=== PATIENT | female | born 1960 | race Caucasian/White ===

== ENCOUNTER 2020-06-21 11:40 | Emergency (ER) | payer OTHER, SELFPAY ==
[2020-06-21 12:28] VITALS: BP 165/70; PULSE 70; RESP 18; TEMP 36.7; O2SAT 99; BMI 28.8
--- NOTE | 2020-06-21 13:10 | ED_ITS ---
HPI - Dental/Oral General Chief complaint: Dental/Oral Stated complaint: swollen face Time Seen by Provider: 06/21/20 12:30 Source: patient Mode of arrival: ambulatory Limitations: no limitations History of Present Illness HPI Narrative: 60yoF presenting to the ED with complaints of right upper dental pain with swelling to the right side of her face and redness that started last night. Reports that she does not have a dentist to follow up with. Denies any other symptoms complaints or concerns at this time. Related Data Previous Rx's Medication Instructions Recorded acetaminophen-codeine 1 tab PO Q8H PRN #10 tab 06/21/20 clindamycin HCl 600 mg PO TID 14 Days #84 cap 06/21/20 ibuprofen 800 mg PO Q8H PRN #14 tab 06/21/20 Allergies Allergy/AdvReac Type Severity Reaction Status Date / Time cephalexin [From KEFLEX] Allergy Unknown IRREGULAR Unverified 02/14/20 16:59 HEART RATE doxycycline [DOXYCYCLINE] Allergy Unknown RASH Unverified 02/14/20 16:59 codeine [CODEINE] AdvReac Unknown GI UPSET Unverified 02/14/20 16:59 Review of Systems Review of Systems: Constitutional : No Fever, No Chills, No changes in PO intake, No difficulty speaking, no recent dental procedure, no heat or cold intolerance while eating, no recent face trauma, ENT/Mouth : + Dental pain/facial swelling, No swallowing difficulty, no change in voice, No jaw pain, no drooling, no trismus, no bleeding, no throat swelling, no lacerations, no tongue swelling, gum swelling, Eyes: No Eye Pain, + right lower periorbital Swelling Cardiovascular : No Chest Pain, No SOB Respiratory : No Cough, No Sputum, No Wheezing, No Smoke Exposure, No Dyspnea Gastrointestinal : No Nausea, No Vomiting, No Diarrhea Genitourinary : No Dysuria Musculoskeletal : No Myalgias Skin : No rash, + facial swelling/redness, Neuro : No Weakness, No Numbness, No Headache Yes all other systems are reviewed and are negative [facility] Past Medical History Attestation statement: The following information was validated with the patient. Medical History COPD (chronic obstructive pulmonary disease) Ovary removal, prophylactic Social History Social History Advance Directives: No Advance Directives Information Provided: No Physical Exam Vital Signs: Vital Signs: Last Vital Signs Temp 98.1 F 06/21/20 12:28 Pulse 70 06/21/20 12:28 Resp 18 06/21/20 12:28 BP 165/70 H 06/21/20 12:28 Pulse Ox 99 06/21/20 12:28 Body Mass Index 28.8 vital signs have been reviewed as normal and appeared to be correct. Blood pressure normal. Heart rate normal. Respiration rate normal. Temperature normal. Oxygen saturation normal. Appearance: Alert. Oriented X3. No acute distress. Head: Normal external exam. Normocephalic. Atraumatic. Eyes: PERRLA. EOMI. Conjunctiva and sclera normal. Eyelids normal. ENT: EAC normal. TM's Normal. Patient with dental caries the cancine ttp at the right upper gingiva otherwise no obvious dental abscess or fluctuant aspect. Pharynx normal. Uvula midline. Moist mucous membranes. No trismus noted. No drooling noted. No muffled voice noted. Neck: Normal inspection. Neck supple. FROM. No adenopathy. Thyroid Normal. No meningeal signs. No neck mass noted. CVS: Normal heart rate and rhythm. Heart sound normal. No murmurs noted. Pulses normal throughout. Respiratory: No respiratory distress. Painless inspiration. Breath sounds normal. No wheezes/rales/rhonchi noted. Chest nontender. No accessory muscle usage noted or decreased air movement noted. Back: Full range of motion noted. Skin: Skin warm and dry. Normal skin color. Normal skin turgor. No rashes/le sions/lacerations noted. Extremities: Extremities exhibit normal range of motion. Extremities nontender. Neuro: Oriented X 3. No motor deficit. No sensory deficit. Reflexes normal. Course Course Course Narrative: 60-year-old female presenting to the ED with complaints of right upper dental pain. Patient has mild erythema to right side of face and soft tissue swelling to right lower periorbital aspect. No signs of dental abscess or indication for labs or imaging at this time. Will DC home with antibiotics and symptomatic treatment along with instructions return if any new or worsening symptoms. Patient understands agrees the plan. [facility] - Dental/Oral Medical Records Attestation: I reviewed the patient's medical records. Discharge Plan Discharge Clinical Impression: Toothache, Dental infection, Cellulitis of face Patient Disposition: Home, Self-Care Instructions: Cellulitis (ED), Toothache (ED) Additional Instructions: Follow-up with the dentist we gave you a couple referrals. Return if you have worsening swelling of the face/redness. Prescriptions: New clindamycin HCl 300 mg capsule 600 mg PO TID 14 Days Qty: 84 RF: 0 ibuprofen 800 mg tablet 800 mg PO Q8H PRN (Reason: pain) Qty: 14 RF: 0 acetaminophen-codeine 300-30 mg tablet 1 tab PO Q8H PRN (Reason: pain) Qty: 10 RF: 0 Referrals: Stephanie Peguero MD [Primary Care Provider] - 2 days Print Language: Croatian
== END 2020-06-21 13:41 | disposition home or self-care (01) ==
PROVIDERS: Emergency Provider Internal Medicine; PCP Family Medicine
DX: K04.7 Periapical abscess without sinus (principal); L03.211 Cellulitis of face; Z79.899 Other long term (current) drug therapy
CPT/HCPCS: 99283

== ENCOUNTER 2022-12-19 08:54 | Emergency (ER) | payer OTHER, SELFPAY ==
[2022-12-19 09:08] VITALS: BP 139/88; PULSE 66; RESP 18; TEMP 36.6; O2SAT 96; BMI 28.2
--- NOTE | 2022-12-19 09:20 | PC.NURSE ---
Patient presenting with what she thinks is a sinus infection. Patient states that she gets these often and that approximately 1 month ago she was [facility] similar symptoms but at that time she ended up not being able to see out of her left eye. Patient trying to avoid having that happen again.
--- OUTSIDE RECORDS SUMMARY | 2022-12-19 09:31 | XMS_ITS | Continuity of Care Document ---
Author Name Unknown Organization [facility] Address [address] [place] [address]- Care Team Providers Care Director University Name Role Phone Marielena OLIVEROS, Stephanie Coles Primary Care Physician Encounter [facility] AC[facility] R [id number] Date(s): 04/28/22 - 05/28/22 [facility] [address], [place] [address] Attending Physician: Admtr, [id number] Admitting Physician: Admtr, Petros Referring Physician: Admtr, [id number] Allergies, Adverse Reactions, Alerts Substance Reaction Severity Status doxycycline Unknown Active Keflex Active Immunizations Given and Recorded Vaccine Date Status Refusal Reason SARS-CoV-2 (COVID-19) mRNA-1273 vaccine 09/30/20 R ecorded influenza virus vaccine, inactivated 04/03/15 [place] rded influenza virus vaccine, inactivated 06/13/12 [place] rded tetanus/diphtheria/pertussis, acel(Tdap) 05/26/10 Recorded Medications amLODIPine 5 mg oral tablet 1 tablet, By Mouth, Daily in AM, # 90 tablet, 1 Refills, Maintenance, 05/25/22 9:14:00 EST, [id number], 168, cm, 03/17/22 9:38:00 EDT, Height, 78, kg, 08/19/20 16:00:00 EDT, Dry Weight Start Date: 05/25/22 Status: Ordered Asmanex HFA 100 mcg/inh inhalation aerosol 2 puffs, Inhalation, 2 times a day, rinse mouth and throat after use, # 13 Gm, 5 Refills, Maintenance, 05/13/21 8:26:00 EST, Aerosol, [id number], Partial fill upon patient request if the prescription is for a schedule II opioid drug., 168, cm,... Start Date: 05/13/21 Status: Ordered cetirizine 10 mg oral tablet 1 tablet = 10 mg, By Mouth, Daily, # 30 tablet, 0 Refills, Maintenance, 05/31/14 9:17:52, Tablet Start Date: 05/31/14 Status: Ordered fluticasone 50 mcg/inh nasal spray See Instructions, SPRAY 2 SPRAYS IN EACH NOSTRIL EVERY DAY, # 16 Gm, 5 Refills, 05/25/22 9:21:00 EST, [facility]/pharmacy #[id number], 30, SPRAY 2 SPRAYS IN EACH NOSTRIL EVERY DAY, 168, cm, 03/17/22 9:38:00 EDT, Height, 78, kg, 08/19/20 16:00:00 EDT, Dry Weight Start Date: 05/25/22 Status: Ordered NuLYTELY with Flavor Packs oral powder for reconstitution 240 mL, By Mouth, Every 10 minutes, May substitute any PEG 3350 solution available SPLIT PREP METHOD, # 1 each, 0 Refills, Maintenance, 08/02/22 17:00:00 EST, REC Powder, [facility]/pharmacy #[id number], test date 08/03/22, 240 mL By Mouth Every 10 minutes,Instr:Ma... Start Date: 08/02/22 Status: Ordered ProAir HFA 90 mcg/inh inhalation aerosol 2 puffs, Inhalation, Every 6 hours, PRN Wheezing/Shortness of Breath, # 1 each, 0 Refills, Maintenance, 12/11/20 13:44:00 EDT, [facility]/pharmacy #[id number], Partial fill upon patient request if the prescription is for a schedule II opioid drug., 2 puffs Inhalat... Start Date: 12/11/20 Status: Ordered Tylenol Extra Strength 500 mg oral tablet 2 tablet = 1,000 mg, By Mouth, Every 4 hours, PRN Pain, # 120 tablet, 0 Refills, Maintenance, 05/31/14 9:19:13, Tablet Start Date: 05/31/14 Status: Ordered Problem List Condition Confirmation Course Effective Dates Status H ealth Status Informant Chronic obstructive lung disease Confirmed Active Environmental allergy Confirmed Active Hypertension Confirmed Active Lung mass 1 Confirmed Active Multiple nodules of lung Confirmed Active 1multiple lung nodules Social History Social History Type Response Tobacco Other: 20 pack year history. about 3/4 ppd or 15 pk yrs. Sex Female Patient Care team information Care Team Personnel Name: Stephanie Peguero MD Position: [facility] Primary Care Physician Member Role: PCP Address: Address: [address] [place] [address] [place] [address]- Care Team Related Persons Name: TRISTINLOVE ALICEA Address: home [address] [place] [id number]
--- OUTSIDE RECORDS SUMMARY | 2022-12-19 09:31 | XMS_ITS | Continuity of Care Document ---
Author Name Unknown Organization [facility] Address [address] [place] [address]- Care Team Providers Care Jewelry Enameler Name Role Phone Stephanie Peguero MD Primary Care Physician Encounter [facility] Date(s): 04/28/22 - 05/05/22 [facility] [address] [place], [place] [address] Encounter Diagnosis Acute sinusitis(Discharge Diagnosis) - 04/28/22 Attending Physician: Not on Staff, Attending MD Referring Physician: Stephanie Peguero MD Allergies, Adverse Reactions, Alerts Substance Reaction Severity Status doxycycline Unknown Active Keflex Active Immunizations Given and Recorded Vaccine Date Status Refusal Reason SARS-CoV-2 (COVID-19) mRNA-9800 vaccine 09/30/20 R ecorded influenza virus vaccine, inactivated 04/03/15 Hernan rded influenza virus vaccine, inactivated 06/13/12 Hernan rded tetanus/diphtheria/pertussis, acel(Tdap) 05/26/10 Recorded Medications amLODIPine 5 mg oral tablet 1 tablet, By Mouth, Daily in AM, # 90 tablet, 0 Refills, Maintenance, 02/22/22 7:11:00 EDT, [id number], 168, cm, 12/11/20 13:22:00 EDT, Height, 78, kg, 08/19/20 16:00:00 EDT, Dry Weight Start Date: 02/22/22 Status: Ordered Asmanex HFA 100 mcg/inh inhalation aerosol 2 puffs, Inhalation, 2 times a day, rinse mouth and throat after use, # 13 Gm, 5 Refills, Maintenance, 05/13/21 8:26:00 EST, Aerosol, [id number], Partial fill upon patient request if the prescription is for a schedule II opioid drug., 168, cm,... Start Date: 05/13/21 Status: Ordered Augmentin 875 mg-125 mg oral tablet 1 tablet, By Mouth, Every 12 hours, for 10 days, # 20 tablet, 0 Refills, Acute 05/08/22 15:22:00 EST, 04/28/22 15:22:00 EST, Tablet, [facility]/pharmacy #[id number], Partial fill upon patient request if the prescription is for a schedule II opioid drug., 168, cm,... Start Date: 04/28/22 Stop Date: 05/08/22 Status: Ordered cetirizine 10 mg oral tablet 1 tablet = 10 mg, By Mouth, Daily, # 30 tablet, 0 Refills, Maintenance, 05/31/14 9:17:52, Tablet Start Date: 05/31/14 Status: Ordered fluticasone 50 mcg/inh nasal spray See Instructions, SPRAY 2 SPRAYS IN EACH NOSTRIL EVERY DAY, # 16 Gm, 5 Refills, 06/01/21 10:08:00 EST, [facility]/pharmacy #[id number], 30, SPRAY 2 SPRAYS IN EACH NOSTRIL EVERY DAY, 168, cm, 12/11/20 13:22:00 EDT, Height, 78, kg, 08/19/20 16:00:00 EDT, Dry Weight Start Date: 06/01/21 Status: Ordered NuLYTELY with Flavor Packs oral powder for reconstitution 240 mL, By Mouth, Every 10 minutes, May substitute any PEG 3350 solution available SPLIT PREP METHOD, # 1 each, 0 Refills, Maintenance, 08/02/22 17:00:00 EST, REC Powder, [facility]/pharmacy #[id number], test date 08/03/22, 240 mL By Mouth Every 10 minutes,Instr:Ma... Start Date: 08/02/22 Status: Ordered ProAir HFA 90 mcg/inh inhalation aerosol 2 puffs, Inhalation, Every 6 hours, PRN Wheezing/Shortness of Breath, # 1 each, 0 Refills, Maintenance, 12/11/20 13:44:00 EDT, [facility]/pharmacy #[id number], Partial fill upon patient request if [...] of lung Confirmed Active 1multiple lung nodules Diagnosis Diagnosis Type Effective Dates Health Status Cl inical Service Informant Acute sinusitis Discharge Diagnosis 04/28/22 Social History Social History Type Response Tobacco Other: 20 pack year history. about 3/4 ppd or 15 pk yrs. Sex Female Patient Care team information Care Team Personnel Name: Marielena OLIVEROS, Stephanie Coles Position: S Primary Care Physician Member Role: PCP Address: Address: [address] [place] [address] [place] [address]- Care Team Related Persons Name: LOVE CROW Address: home [address] [place] [id number]
--- OUTSIDE RECORDS SUMMARY | 2022-12-19 09:31 | XMS_ITS | Continuity of Care Document ---
Author Name Unknown Organization [facility] Address [address] [place] [address]- Care Team Providers Care Special Effects Designer Name Role Phone Marielena OLIVEROS, Stephanie Coles Primary Care Physician Encounter [facility] Date(s): 03/25/22 - 04/24/22 [facility] [address] [place] [address]- [place] Allergies, Adverse Reactions, Alerts Substance Reaction Severity Status doxycycline Unknown Active Keflex Active Immunizations Given and Recorded Vaccine Date Status Refusal Reason SARS-CoV-2 (COVID-19) mRNA-7323 vaccine 09/30/20 R ecorded influenza virus vaccine, inactivated 04/03/15 Hernan rded influenza virus vaccine, inactivated 06/13/12 [place] rded tetanus/diphtheria/pertussis, acel(Tdap) 05/26/10 Recorded Medications amLODIPine 5 mg oral tablet 1 tablet, By Mouth, Daily in AM, # 90 tablet, 0 Refills, Maintenance, 02/22/22 7:11:00 EDT, [id number], 168, cm, 12/11/20 13:22:00 EDT, Height, 78, kg, 08/19/20 16:00:00 EDT, Dry Weight Start Date: 02/22/22 Status: Ordered Asmanex HFA 100 mcg/inh inhalation aerosol 2 puffs, Inhalation, 2 times a day, rinse mouth and throat after use, # 13 Gm, 5 Refills, Maintenance, 05/13/21 8:26:00 EST, Aerosol, [id number], Partial fill upon patient request if the [...] 16 Gm, 5 Refills, 06/01/21 10:08:00 EST, [facility]/pharmacy #[id number], 30, SPRAY 2 SPRAYS IN [...] Refills, Maintenance, 08/02/22 17:00:00 EST, REC Powder, [facility]/pharmacy #[id number], test date 08/03/22, 240 mL By Mouth Every 10 minutes,Instr:Ma... Start Date: 08/02/22 Status: Ordered ProAir HFA 90 mcg/inh inhalation aerosol 2 puffs, Inhalation, Every 6 hours, PRN Wheezing/Shortness of Breath, # 1 each, 0 Refills, Maintenance, 12/11/20 13:44:00 EDT, [id number], Partial fill upon patient request [...] Team Personnel Name: Stephanie Peguero MD Position: S Primary Care Physician Member Role: PCP Address: Address: [address] [place] [address] Primary Care [place], [place] [address] Care Team Related Persons Name: LOVE CROW Address: home [address] [place] [address]
--- OUTSIDE RECORDS SUMMARY | 2022-12-19 09:31 | XMS_ITS | Continuity of Care Document ---
Author Name Unknown Organization [facility] ter Address [address] [place] [id number]- Care Team Providers Care Nursing Home Admissions Director Name Role Phone Stephanie Peguero MD Primary Care Physician Encounter [facility] Date(s): 06/13/19 - 06/20/[address] [address]- [facility] Attending Physician: Stephanie Peguero MD Allergies, Adverse Reactions, Alerts Substance Reaction Severity Status codeine Active sulfa drugs Active Keflex Active Medications cetirizine 10 mg oral tablet 1 tablet = 10 mg, By Mouth, Daily, # 30 tablet, 0 Refills, Maintenance, 05/31/14 9:17:52, Tablet Start Date: 05/31/14 Status: Ordered fluticasone 50 mcg/inh nasal spray 2 sprays, Nares, Both, Daily, # 9.9 mL, 1 Refills, Maintenance, 06/13/19 11:08:00 EST, Nasal [id number], 2 sprays Nares, Both Daily, 168, cm, 06/13/19 10:24:00 EST, Height, 83, kg, 03/09/19 11:47:00 EDT, Dry Weight Start Date: 06/13/19 Status: Ordered fluticasone CFC free 110 mcg/inh inhalation aerosol 2 puffs, By Mouth, 2 times a day, rinse mouth and throat after use, # 1 each, 1 Refills, Maintenance, 06/13/19 11:09:00 EST, Aerosol, [id number], 168, cm, 06/13/19 10:24:00 EST, Height, 83, kg, 03/09/19 11:47:00 EDT, Dry Weight Start Date: 06/13/19 Status: Ordered hydrocortisone 2.5% topical cream 0 Refills, Maintenance, 06/13/19 10:39:00 EST Start Date: 06/13/19 Status: Ordered hydrOXYzine hydrochloride 50 mg oral tablet 0 Refills, Maintenance, 06/13/19 10:39:00 EST Start Date: 06/13/19 Status: Ordered ProAir HFA 90 mcg/inh inhalation aerosol with adapter Refills 0, 06/13/19 10:38:00 EST Start Date: 06/13/19 Status: Ordered Tylenol Extra Strength 500 mg oral tablet 2 tablet = 1,000 mg, By Mouth, Every 4 hours, PRN Pain, # 120 tablet, 0 Refills, Maintenance, 05/31/14 9:19:13, Tablet Start Date: 05/31/14 Status: Ordered Problem List Condition Effective Dates Status Health Status Inform ant Chronic obstructive lung disease(Confirmed) Active Environmental allergy(Confirmed) Active Lung mass(Confirmed) Active Social History Social History Type Response Smoking Status Former smoker, quit more than 30 days ago entered on: 06/10/19 Sex
--- OUTSIDE RECORDS SUMMARY | 2022-12-19 09:31 | XMS_ITS | Continuity of Care Document ---
Author Name Unknown Organization [facility] ter Address [address] [place] [address]- Care Team Providers Care Wood Coater Name Role Phone Marielena OLIVEROS, Stephanie Coles Primary Care Physician Encounter [facility] Date(s): 05/14/19 - 05/14/[address] [address]- [facility] Attending Physician: Amelia Villatoro Allergies, Adverse Reactions, Alerts Substance Reaction Severity Status Keflex Active Medications cetirizine 10 mg oral tablet 1 tablet = 10 mg, By Mouth, Daily, # 30 tablet, 0 Refills, Maintenance, 05/31/14 9:17:52, Tablet Start Date: 05/31/14 Status: Ordered Fluticasone 110 mcg Inhaler HFA See Instructions, Maintenance, 50mcg, 05/31/14 9:18:29 Start Date: 05/31/14 Status: Ordered Tylenol Extra Strength 500 mg oral tablet 2 tablet = 1,000 mg, By Mouth, Every 4 hours, PRN Pain, # 120 tablet, 0 Refills, Maintenance, 05/31/14 9:19:13, Tablet Start Date: 05/31/14 Status: Ordered Social History Social History Type Response Smoking Status Never smoker entered on: 05/31/14 Sex
--- NOTE | 2022-12-19 10:39 | ED.GENADULT ---
HPI - General Adult General Chief complaint: Upper Respiratory Symptoms Stated complaint: severe sinus infection Time Seen by Provider: 12/19/22 10:16 Source: patient Mode of arrival: ambulatory Limitations: no limitations History of Present Illness HPI narrative: 62 yold female presents so the ED for sinus infection. patient states bilateral maxillary and frontal sinus pain with left ear pain, chills, dry cough, yellow nasal discharge for one week. patient states already taking flonase and allergy meds with no relief. patient denies any photophobia, neck stiffnuess, recent trauma to the head, nuasea, vomitting, fever, chills, or headache. patient states similiary presentation at [facility] and had normal head CT scan that was negative for brain bleed or mass. Patient denies being on blood thinnders. patient denies any recent trauma to the head or elsewhere. Related Data Previous Rx's Medication Instructions Recorded acetaminophen 300 mg-codeine 30 mg 1 tab PO Q8H PRN pain #10 tabs 06/21/20 tablet clindamycin HCl 300 mg capsule 600 mg PO TID dental infection 14 06/21/20 days #84 caps ibuprofen 800 mg tablet 800 mg PO Q8H PRN pain #14 tabs 06/21/20 amoxicillin 875 mg-potassium 1 tab PO Q12H 10 days #20 tabs 12/19/22 clavulanate 125 mg tablet Allergies Allergy/AdvReac Type Severity Reaction Status Date / Time cephalexin [From KEFLEX] Allergy Unknown IRREGULAR Verified 12/19/22 09:08 HEART RATE doxycycline [DOXYCYCLINE] Allergy Unknown RASH Verified 12/19/22 09:08 codeine [CODEINE] AdvReac Unknown GI UPSET Verified 12/19/22 09:08 Review of Systems Review of Systems: Yellow nasal discharge, left ear pain, maxillary frontal sinus pain. Yes all other systems are reviewed and are negative PMF Past Medical History Medical History COPD (chronic obstructive pulmonary disease) Ovary removal, prophylactic Social History Social History Alcohol intake: never Smoked in Last 30 Days: No Use of substances other than those prescribed or required for medical reasons: No Advance Directives: No Advance Directives Information Provided: No Physical Exam ED Vital Signs: Vital Signs - 24 hr 12/19/22 09:08 12/19/22 11:16 Temperature 97.9 F Pulse Rate 66 61 Respiratory Rate 18 16 Blood Pressure 139/88 159/84 H Pulse Oximetry 96 97 Oxygen Delivery Method Room Air Room Air BMI result Body Mass Index 28.2 Const General: cooperative, healthy appearing, comfortable, no acute distress, well developed, alert, awake and Physically active Orientation/consciousness: oriented to person, oriented to place, oriented to time and patient oriented x3 [facility] Head: Yes normal to inspection, Yes No palpable skull fracture present, Yes normocephalic, Yes atraumatic and No abrasion Ears: hearing grossly normal bilaterally, external ears normal, TM's normal bilaterally, TM normal on the right, TM normal on the left, EAC's normal, mastoids normal and no periauricular adenopathy General nose exam: Normal external nose present and Nasal discharge present ( yellow) Face and sinus: Yes normal facial exam and Yes sinus tenderness ( Bilateral maxillary and frontal) Throat: Yes posterior oropharynx normal, Yes tonsils normal and Yes uvula midline Eyes General: appearance normal, both eyes and all related structures Pupils: Equal, round and reactive pupils present EOM: EOMs intact bilaterally Neck Neck: Yes normal visual inspection, Yes full ROM, Yes no lymphadenopathy, Yes no meningeal signs, Yes trachea midline, Yes supple, No anterior neck swelling and No tender Chest Chest palpation & inspection: normal inspection of the chest and normal palpation of entire chest wall Resp Effort & Inspection: normal respiratory effort and able to speak in complete sentences Auscultation: clear to auscultation bilaterally Cardio Jugular venous distension: no JVD Heart sounds: S1 normal heart sound present and S2 normal heart sound present GI Inspection: Yes normal to inspection and No abdominal wall ecchymosis Palpation (GI): Soft to palpation, not firm, nontender, no guarding and not rigid General: No CVA tenderness and Yes no CVA tenderness Back/Spine/Pelvis Back: no CVA tenderness, No CVA tenderness and No back tenderness Skin General skin exam: no rashes or lesions noted and elasticity normal Neuro General: oriented to person, oriented to place, oriented to time, patient oriented x3, gait normal, tone normal, moves all extremities, Normal light touch and pain sensation, no meningeal signs, no focal motor deficits, CN's II-XI intact bilaterally and normal sensation to monofilament Cranial nerves: Yes Equal, round and reactive pupils present Extrem General: Yes normal to inspection and Yes full ROM Psych Appearance: grossly normal, well kempt and not disheveled Medical Decision Making Medical Decision Making MDM Narrative: 62-year-old female with history of some frequent recurrent sinusitis presents to ED for maxillary frontal sinus tenderness / pain with chills, nasal discharge, and left ear pain for 1 week with cough. Patient states taking Flonase and allergy medication already for symptoms. Patient denies any nausea, vomiting, recent head trauma, loss of vision, change in vision, slurred speech, facial droop, paralysis of extremities, headache, thunder clap headache, change in vision, neck stiffness, abdominal pain, rash, or any other concerning symptoms. Patient will be discharged with Augmentin. Patient states able to take penicillins. patient states taking penicillins in the past. negative for any neuro deficits. Presently no indication for head CT scan Differential Diagnosis Differential Diagnoses: The differential diagnosis associated with the presentation includes ( sinusitis, URI, otitis media, otitis externa, brain bleed, meningitis, encephalitis, giant cell arthritis) Admission/Observation Consideration of admission/observation: Escalation of care including admission/observation considered External Record Review External record reviewed: Other ( prior ED visit) Tests considered The following testing was considered but not selected: head CT. Prescription Management I considered prescription management with: Antibiotic Discharge Plan Discharge Clinical Impression: Sinusitis Patient Disposition: Home, Self-Care Instructions: Sinusitis (ED) Additional Instructions: continue taking allergy medication and Flonase. He will be discharged with antibiotics. Please follow-up with primary care provider and ENT specialist. Return to the ED immediately for worsening sinus pain, headache, photophobia, change in vision, loss of vision, nausea, vomiting, fever, chills, coughing up blood, sore throat, neck stiffness, photophobia, rash, facial droop, paralysis of extremities, or any other concerning symptoms Prescriptions: New amoxicillin-pot clavulanate 875-125 mg tablet 1 tab PO Q12H 10 Days Qty: 20 0RF No Action clindamycin HCl 300 mg capsule 600 mg PO TID 14 Days Qty: 84 0RF ibuprofen 800 mg tablet 800 mg PO Q8H PRN (Reason: pain) Qty: 14 0RF acetaminophen-codeine 300-30 mg tablet 1 tab PO Q8H PRN (Reason: pain) Qty: 10 0RF Referrals: Donaldo Payton [Physician] - (Recurrent Sinusitis) Stand Alone Forms: Work/School Release Interventions: ED Discharge Assessment Last Done: 12/19/22 11:16 Discharge Date/Time: 12/19/22 11:17 Print Language: Guatemalan
[2022-12-19 11:16] VITALS: BP 159/84; PULSE 61; RESP 16; O2SAT 97
== END 2022-12-19 11:17 | disposition home or self-care (01) ==
PROVIDERS: Emergency Provider Emergency Medicine Emergency Medical Services; PCP Family Medicine
DX: J32.8 Other chronic sinusitis (principal); H92.02 Otalgia, left ear
CPT/HCPCS: 99283; 99284

== ENCOUNTER 2023-01-09 09:59 | Emergency (ER) | payer OTHER, SELFPAY ==
[2023-01-09 10:05] VITALS: BP 129/83; PULSE 77; RESP 18; TEMP 36.8; O2SAT 97; BMI 24.9
[2023-01-09 10:21] VITALS: BP 136/81; PULSE 69; RESP 16; TEMP 36.6; O2SAT 97
--- NOTE | 2023-01-09 10:35 | PC.NURSE ---
pt a&ox3, vss, pt verbalizing 7/10 frontal pressure headache - pt states that she thinks it is from sinus infection. pt also verbalizing 9/10 LUE pain. pt states that left arm pain was more localized in the beginning but now radiates towards neck/back/rib cage. pt verbalizing she has extreme itching all over her body. also verbalizing loose stools the past few days. pt has productive cough - slight wheezing upon inspiration/expiration - pt denies SOB or pain on inspiration.
--- NOTE | 2023-01-09 11:13 | ED.GENADULT ---
HPI - General Adult General Chief complaint: General Medical Stated complaint: L side pain/L eye issues Time Seen by Provider: 01/09/23 11:09 Source: patient Mode of arrival: ambulatory Limitations: no limitations History of Present Illness HPI narrative: 62-year-old female who presents emergency department for evaluation sinus headache, rhinorrhea, blurred vision in the left eye left arm pain, and fever. The patient was seen here in the emergency department on 12/19/2022 for sinusitis and was started on Augmentin for 10 days. The patient states that the day after she started her antibiotics she blew her nose hard and states that she had drainage coming out of her left eye. She describes the drainage is a clear fluid. She states that since that time she has had blurred vision her left eye. She states she can see but images or blurry despite wearing her glasses. She had no change in vision of her right eye pain. She denies any pain in her left eye. She states however she is continuing to have sinus pain. She points to her frontal and maxillary sinuses bilaterally. She states the pain is a constant, pressure-like pain she states that she feels congested in both ears are plugged up and painful. She denied neck pain but she states she is having pain in her left shoulder, left chest and left arm. She states she is short of breath but this is chronic secondary to her COPD. She states she has had loose stools but no diarrheal stools. Patient states that this happened to her in the past when she had a sinus infection and that she required a 2nd dose of antibiotics (levofloxacin). Related Data Previous Rx's Medication Instructions Recorded acetaminophen 300 mg-codeine 30 mg 1 tab PO Q8H PRN pain #10 tabs 06/21/20 tablet clindamycin HCl 300 mg capsule 600 mg PO TID dental infection 14 06/21/20 days #84 caps ibuprofen 800 mg tablet 800 mg PO Q8H PRN pain #14 tabs 06/21/20 amoxicillin 875 mg-potassium 1 tab PO Q12H 10 days #20 tabs 12/19/22 clavulanate 125 mg tablet levofloxacin 500 mg tablet 500 mg PO DAILY 10 days #10 tabs 01/09/23 Allergies Allergy/AdvReac Type Severity Reaction Status Date / Time cephalexin [From KEFLEX] Allergy Unknown IRREGULAR Verified 01/09/23 10:05 HEART RATE doxycycline [DOXYCYCLINE] Allergy Unknown RASH Verified 01/09/23 10:05 codeine [CODEINE] AdvReac Unknown GI UPSET Verified 01/09/23 10:05 Review of Systems Review of Systems: Yes all other systems are reviewed and are negative [facility] Past Medical History Medical History COPD (chronic obstructive pulmonary disease) Hypertension Ovary removal, prophylactic Social History Social History Alcohol intake: current Alcohol intake frequency: holidays/special occasions only Smoked in Last 30 Days: No Use of substances other than those prescribed or required for medical reasons: Yes Substance Use Type: Marijuana Advance Directives: No Advance Directives Information Provided: Yes Patient : No Physical Exam ED Vital Signs: Vital Signs - 24 hr 01/09/23 10:05 01/09/23 10:21 01/09/23 11:14 Temperature 98.2 F 97.8 F 98.2 F Pulse Rate 77 69 70 Respiratory Rate 18 16 16 Blood Pressure 129/83 136/81 146/80 H Pulse Oximetry 97 97 96 Oxygen Delivery Method Room Air Room Air Room Air BMI result Body Mass Index 24.9 Vital signs were normal Exam General: Awake, alert in no distress Head: Normocephalic, atraumatic EENT: PERRL, Lids normal, sclera normal, conjunctiva normal, nose normal , ears normal, tympanic membranes were normal with no erythema throat without erythema or exudates, extraocular muscles intact. Patient does have tenderness palpation of the frontal maxillary sinuses bilaterally, there is no erythema over the sinuses, no flocculence over the sinuses. Neck: Supple, no adenopathy, trachea midline and nontender Lung: breath sounds symmetric, no wheezing, rales or rhonchi Chest: symmetric movement, nontender Heart: regular rate and rhythm, normal S1, S2 no murmurs or rubs Abdomen: soft, non-tender, nondistended, normal bowel sounds Back: no vertebral tenderness, no CVAT Extremities: no deformities, moves all extremities symmetrically Skin: no rashes, no lesion, normal color and warmth Neuro: Awake, alert, oriented, normal speech, cranial nerves intact, moves all extremities symmetrically Psych: Pleasant, cooperative Medications Administered Discontinued Medications Generic Name Dose Route Start Last Admin Trade Name Dipesh PRN Reason Stop Dose Admin Fluorescein Sodium 1 strip 01/09/23 12:08 01/09/23 12:17 Fluorescein Sodium Strip EYE-LEFT 01/09/23 12:09 1 strip ONCE ONE Administration Tetracaine HCl 1 drop 01/09/23 12:08 01/09/23 12:17 Tetracaine Hcl/Pf 0.5% Oph Georgie 4 Ml Drops EYE-BOTH 01/09/23 12:09 1 drop ONCE ONE Administration Medical Decision Making Medical Decision Making [facility] Narrative: 62-year-old female who presents emergency department for evaluation of frontal maxillary sinus pain with nasal congestion bilateral ear pain with decreased hearing, left eye pain with blurred vision and fever at home. Patient was seen in the emergency department on 12/19/2022 with similar complaints and was treated with Augmentin for 10 days which did not improve her symptoms. She is also complaining of left chest pain and left arm pain. Patient's examination did reveal tenderness palpation of her maxillary and frontal sinuses but there were no other significant findings. I suspect that the patient still has a sinus infection requires a 2nd course of antibiotics. Patient was prescribed levofloxacin 500 mg once a day for 10 days. She was advised to take Tylenol and ibuprofen for pain. The patient is experiencing blurred vision her left eye and I told her she should follow-up with her nurse behavioral health care or asphalt paver for re-evaluation. She was given printed and verbal instructions and discharged home. 1241: Visual acuity with glasses Right eye: 20/30 Left eye: 20/100 Both eyes: corrected 20/50 Intra-ocular pressure Right eye: 14 Left eye: 13 Fluorescein dye evaluation revealed no uptake of the cornea, cornea was clear with no obvious deformities I did tell the patient I do not have a clear etiology for the change in vision but she states this has happened to her before when she has had sinus infections. I advised her to follow-up with her nurse behavioral health care within 1-2 days for re-evaluation to return if her symptoms get worse. Differential Diagnosis Differential Diagnoses: The differential diagnosis associated with the presentation includes Differential diagnosis includes was not limited to sinus infection, sinus abscess,, allergies, dental infection, Discharge Plan Discharge Clinical Impression: Sinusitis, Blurred vision, left eye Patient Disposition: Home, Self-Care Additional Instructions: Your symptoms are consistent with a sinus infect of your frontal and maxillary sinuses. Take levofloxacin 500 mg pills, 1 pill once a day for 10 days. Use [facility] to find the chief displaced to get this medication filled. Take ibuprofen 200 mg pills, 2 pills every 6 hours as needed for pain or fever. Take Tylenol (acetaminophen) 500 mg pills, 2 pills every 6 hours as needed for pain or fever. Follow-up with your doctor in 2 days. Please return to the emergency department if your symptoms get worse or if you develop any symptoms that are concerning to you. You should follow-up with your nurse behavioral health care or asphalt paver to get your eye exam to see why you are experiencing blurred vision. Prescriptions: New levofloxacin 500 mg tablet 500 mg PO DAILY 10 Days Qty: 10 0RF No Action clindamycin HCl 300 mg capsule 600 mg PO TID 14 Days Qty: 84 0RF ibuprofen 800 mg tablet 800 mg PO Q8H PRN (Reason: pain) Qty: 14 0RF acetaminophen-codeine 300-30 mg tablet 1 tab PO Q8H PRN (Reason: pain) Qty: 10 0RF amoxicillin-pot clavulanate 875-125 mg tablet 1 tab PO Q12H 10 Days Qty: 20 0RF
[2023-01-09 11:14] VITALS: BP 146/80; PULSE 70; RESP 16; TEMP 36.8; O2SAT 96
[2023-01-09] MEDS: Fluorescein Sodium STRIP 1 STRIP EYE-LEFT (12:17)
[2023-01-09] MEDS: Tetracaine HCl/PF 0.5% Oph Sol 4 ML DROPS 1 DROP EYE-BOTH (12:17)
--- NOTE | 2023-01-09 12:17 | PC.NURSE ---
provider bedside administering medication into the pt's left eye.
== END 2023-01-09 12:30 | disposition home or self-care (01) ==
PROVIDERS: Emergency Provider Emergency Medicine Emergency Medical Services; PCP Family Medicine
DX: J32.9 Chronic sinusitis, unspecified (principal); H53.8 Other visual disturbances
CPT/HCPCS: 99283; 99284